=== PATIENT | female | born 1975 | race Caucasian/White ===

== ENCOUNTER 2019-04-27 11:14 | Emergency (ER) | payer OTHER, SELFPAY ==
--- NOTE | 2019-04-27 11:18 | ED.GENADUL_ITS ---
Discharge Plan Disposition Patient Disposition: HOME Condition: Fair Discharge Details Chief Complaint: Nk/Back Pain Clinical Impression: Back muscle spasm Primary Care Provider: [facility] ED Provider: Antoinette Payton Home Meds and New Rx's Prescriptions: New diazepam [Valium] 5 mg tablet 5 mg PO TID PRN (Reason: muscle spasm) Qty: 7 RF: 0 cyclobenzaprine 10 mg tablet 10 mg PO TID PRN (Reason: muscle spasm) Qty: 10 RF: 0 Continued citalopram 10 mg Tablet 10 mg PO DAILY RF: 0 levothyroxine 50 mcg Tablet 50 mcg PO DAILY RF: 0 diazepam [Valium] 5 mg Tablet 5 mg PO BID PRNRF: 0 Multi For Her 18 mg iron-600 mcg-40 mcg Capsule 1 tab-cap PO DAILY RF: 0 Discharge Instructions Instructions: Muscle Spasm (ED) Additional Instructions: Encourage hydration. Encouraged gentle stretching and frequent range of motion. He may continue with topical options such as Salonpas or Lidoderm patches. Please continue with Tylenol, you may take max dosing of 1000 mg every 6 hours, ibuprofen 600 mg every 6 hours. If this is unsuccessful at relieving her discomfort and/or muscle spasm persists. You may alternate between the Valium and Flexeril. Please take these medications only as prescribed. Do not take these medications at this time time. Please follow-up with your primary care next week for reevaluation. If you develop fever/chills, abdominal pain, nausea/vomiting, change in your bowel or bladder habits, rash or other new/worsening symptoms, please seek care urgently once again. Please continue with physical therapy exercises previously advised. May try Therelyssa Peñae as discussed Discharge Data Discharge Date/Time-TO BE ENTERED AT DEPARTURE: 04/27/19 16:05 Medical Decision Making Patient is a pleasant 43-year-old female, accompanied by her , with chief complaint of right-sided back pain. She reports that she has had similar episodes multiple times historically. Reports that she typically has bad spasm approximately once per year. Patient typically resides in [place]. She does have a PRN order for 5 mg Valium tablets as written by her primary care. She does have a bottle here with her today. Reports she took 2.5 mg 4 hours prior to arrival with no improvement in her symptoms. Denies any recent trauma. States that she does have a heavy 2-year-old son that can exacerbate her back pain when she lifts and he begins to wiggle. No falls. States that the pain was noted yesterday morning reports she woke with this discomfort. Since that time, she is been having severe pain along the right side of her back, this is the area where she typically has spasm when this does occur. She states this does go towards the lateral aspect of the right hip but denies any pain radiating into the right lower extremity. Is ambulating, leaning to the left, assisted by her . On exam, patient appears uncomfortable. She is ambulating with an antalgic gait leaning as noted above. Vital signs within normal limits. She appears nontoxic. She has a large area of notably tense and spasmodic muscles on the right side of her back. She is no tenderness midline or paraspinal palpation. No erythema, warmth, drainage. No rash. She has very limited range of motion. No saddle paresthesias. Reflexes and strength are equal bilaterally in the lower extremity. No evidence of cauda equina. Patient was given Tylenol, ibuprofen, Lidoderm patch, Valium. She appears slightly more comfortable but only minimally so. She has persistent severe pain with any type of movement. She still has notable spasm with palpation. Plan to augment this with oxycodone. Patient is feeling improved after the addition of the oxycodone. She is able to tolerate a more upright position in regard to laterality but is still slightly kyphotic when ambulating. States that pain is greatly improved. Patient ambulated about the department. Pain is not yet to the point that she is able to manage this at home. She is requesting more for her discomfort, in particular further management of her muscle spasm. I did discuss the case with Dr. Nugent as I am concerned to continue adding medications that may have further analgesic effect. The patient is not sedated anyway. She does not appear fatigued. She is reading her book otherwise very interactive. Patient continues to have notable palpable spasm of the right side of her back. We discussed the block but at this point again, the patient prefers to focus more on muscle relaxer strategies. She had initially told me that Flexeril has not worked well for her. However, she is now reporting that it is been quite sometime since she tried this and will give her 10 mg p.o. Flexeril to see if this helps improve her symptoms. Reevaluate the patient, she continues to feel slightly improved with pain persist. She reports that she feels that she can move more but the pain is still very much factor. Dr. Nugent again talked with the patient and discussed risk/benefits as well as expected procedural steps of block with lidocaine bupivacaine. Patient voiced understanding and wished to proceed. Chely galloway see his note. After this, patient is more mobile. She has been trying to gently stretch and move. She is more ambulatory. Feels that she is ready for discharge at this time. She has been working with physical therapy for quite some time regarding her recurrent back spasm will continue with physical therapy recommendations. We will continue her on Flexeril and Valium but I did advise that she should not take these medications together. She was given strict usage instructions and we discussed the risks associated with medications in depth. She has not been fatigued at all since being here, has tolerated this combination well and was advised to separate them more so one at home. She will contact her primary care tomorrow to schedule follow-up appointment. She is given strict return precautions. All of her questions and concerns were addressed and she is in agreement this plan. HPI General Mode of arrival: ambulatory . Date/Time Provider Initiated Documentation: 04/27/19 11:18 . Limitations to Documentation: no limitations . Information obtained by: patient, family () and RN notes reviewed . History of Present Illness 43 year old F presents to the emergency department with the chief complaint of right sided back pain, muscle spasm, described as moderate and similar to prior episodes, with intensity rated at 7. Quality is described as stabbing, and is localized to the back. Patient reports no radiation. Patient started experiencing this day(s) (1) and it has been constant. Immobilization improves symptom(s), Movement worsens symptoms . Patient notes no other symptoms.; denies chest pain, cough, diaphoresis, fever/chills, loss of appetite, nausea/vomiting, rash and shortness of breath. Patient did receive the following treatments prior to arrival, other (2.5 mg Valium) Related Data Home Medications Medication Instructions Recorded Confirmed Multi For Her 1 tab-cap PO DAILY 04/27/19 04/27/19 citalopram 10 mg PO DAILY 04/27/19 04/27/19 cyclobenzaprine 10 mg PO TID PRN #10 tab 04/27/19 diazepam [Valium] 5 mg PO BID PRN 04/27/19 04/27/19 diazepam [Valium] 5 mg PO TID PRN #7 tab 04/27/19 levothyroxine 50 mcg PO DAILY 04/27/19 04/27/19 Previous Rx's Medication Instructions Recorded cyclobenzaprine 10 mg PO TID PRN #10 tab 04/27/19 diazepam [Valium] 5 mg PO TID PRN #7 tab 04/27/19 Allergies Allergy/AdvReac Type Severity Reaction Status Date / Time leuprolide [From Lupron] AdvReac Unverified 04/27/19 11:28 Review of Systems Constitutional Constitutional: Reports as per HPI, Denies chills, Denies fatigue, Denies fever(s), Denies frequent falls and Denies headache(s) Eyes Eyes: Denies change in vision ENT Ears, Nose, Mouth, and Throat: Denies headache(s) Cardiovascular Cardiovascular: Denies chest pain, Denies dyspnea and Denies dyspnea on exertion Respiratory Respiratory: Denies cough, Denies dyspnea and Denies dyspnea on exertion Gastrointestinal Gastrointestinal: Denies abdominal pain, Denies change in bowel habits and Denies fecal incontinence Genitourinary Genitourinary: Reports as per HPI, Denies urinary incontinence and Denies urinary hesitancy Musculoskeletal Musculoskeletal: Reports as per HPI, Reports back pain, Denies muscle weakness, Denies numbness, Denies radiating pain into limb, Reports stiffness and Denies tingling Integumentary/Breasts Skin/Breast: Reports as per HPI and Denies rash Neurologic Neurologic: Reports as per HPI, Denies frequent falls, Denies headache(s), Denies focal weakness, Denies numbness, Denies radicular pain, Denies sensory deficit, Denies tingling and Denies paresthesias Endocrine Endocrine: Denies fatigue [facility] Social History Smoking/Tobacco Use Status: Never Alcohol Intake: current Alcohol Intake frequency: holidays/special occasions only Alcohol type: wine Drug use: Never Substance use type: does not use Do you feel safe at home: Yes Do you feel safe in your relationship?: Yes Exam Const General: cooperative, healthy appearing, uncomfortable (appears very uncomfortable, walking assisted by ), no acute distress, well developed and well groomed Nutritional Appearance: average body habitus and well nourished Orientation: alert and awake Eyes General: appearance normal, both eyes and all related structures Neck Neck: normal visual inspection, full ROM, no lymphadenopathy and no meningeal signs Resp Effort & Inspection: normal respiratory effort and able to speak in complete sentences Auscultation: clear to auscultation bilaterally, no rales, no rhonchi and no wheezes Cardio Rate: regular rate Rhythm: regular rhythm Heart Sounds: S1 normal and S2 normal Back/Spine/Pelvis Cervical Spine: normal cervical lordosis Thoracic/Lumbar Spine: No thoracic and lumbar spine normal to inspection (leaning to the left, significant palpable spasm along right side), No pa raspinal tenderness, thoraco-lumbar ROM limited, No thoracic spinal tenderness and No lumbar spinal tenderness Pelvis: no pain with anterior-posterior compression and no pain with lateral compression Sacroiliac joints: bilaterally nontender Back/spine/pelvis image: 1. area of palpable spasm with pain Skin General skin exam: no rashes or lesions noted Neuro General: alert and awake Cognition: normal cognition Speech: speech normal Gait: normal gait Motor: muscle tone normal throughout, strength 5/5 throughout, no movement abnormalities noted and no fasciculations Sensory Exam: no sensory deficits noted (no saddle paresthesias) DTR's: Rt Patellar: 2+, Lt Patellar: 2+, Rt Ankle: 2+ and Lt Ankle: 2+ Extrem General: normal to inspection, full ROM, normal capillary refill, no joint enlargement, no pedal edema, no calf tenderness and normal gait Psych Appearance: grossly normal and well kempt Mental Status: mental status grossly normal Speech and Movement: speech and movement normal
[2019-04-27 11:24] VITALS: BP 107/70; PULSE 60; RESP 14; TEMP 36.4; O2SAT 100
[2019-04-27] MEDS: Lidocaine 5% Patch 1 PATCH (11:58)
[2019-04-27] MEDS: diazePAM 5 MG TAB (11:58)
[2019-04-27] MEDS: Ibuprofen 800 MG TAB (11:59)
[2019-04-27] MEDS: Acetaminophen 500 MG TAB (11:59)
[2019-04-27] MEDS: oxyCODONE 5 MG TAB PO (12:50)
[2019-04-27] MEDS: Cyclobenzaprine 10 MG TAB PO (14:22)
[2019-04-27] MEDS: Bupivacaine 0.5% Pres-Free 30 ML VIAL (15:10)
[2019-04-27] MEDS: Lidocaine 2% Multi-Dose 50 ML VIAL (15:11)
== END 2019-04-27 16:05 | disposition home or self-care (01) ==
PROVIDERS: Emergency Provider Physician Assistant
DX: M62.830 Muscle spasm of back (principal)
CPT/HCPCS: 99283

== ENCOUNTER 2020-02-28 12:52 | Emergency (ER) | payer OTHER, SELFPAY ==
[2020-02-28 13:11] VITALS: BP 140/95; PULSE 64; RESP 16; TEMP 36.6; O2SAT 99
--- NOTE | 2020-02-28 13:59 | W.ED.GENAD ---
Discharge Plan Disposition Patient Disposition: HOME Condition: Stable Discharge Details Chief Complaint: Laceration Clinical Impression: Laceration of finger of left hand Primary Care Provider: [facility] ED Provider: Meenu Stringer Home Meds and New Rx's Prescriptions: New cephalexin 500 mg tablet 500 mg PO BID 5 Days Qty: 10 RF: 0 No Action levothyroxine 50 mcg Tablet 50 mcg PO DAILY RF: 0 Multi For Her 18 mg iron-600 mcg-40 mcg Capsule 1 tab-cap PO DAILY RF: 0 Discharge Instructions Instructions: Finger Laceration (ED), Skin Adhesive Care (ED) Additional Instructions: Use splint as directed for the next 3 to 4 days. Tissue adhesive will start to slough off within 4 to 6 days. No soaking, return for any signs of infection including redness, drainage, swelling, pain fever or any concerns. Follow up with primary care provider in 3-5 days. Return to ED sooner if any worsening or concerns. Increase oral fluids. Please take Tylenol or Ibuprofen with food every 4-6 hours as needed for pain and swelling. Discharge Data Discharge Date/Time-TO BE ENTERED AT DEPARTURE: 02/28/20 14:54 Medical Decision Making Laceration repaired with skin tissue adhesive as noted in procedure note above. Wound was cleaned with chlorhexidine surgical scrub, nonadherent dressing applied and finger splint applied. Discussed home care and strict return instructions, verbalized understanding. Patient placed on 5 days of cephalexin 500 mg twice a day due to laceration over the joint space to treat empirically for infection. Tdap booster was given in department. Patient verbalized understanding and discussed strict return instructions and to watch for signs of infection. HPI General Date/Time Provider Initiated Documentation: 02/28/20 13:13. Limitations to Documentation: no limitations. Information obtained by: patient. HPI Narrative: 24-year-old female presents with a left index finger laceration which occurred approximately 2 hours prior to arrival. At noon she was cutting a bagel and the knife slipped. She has full range of motion noted to her digit unknown tetanus status at this time. Related Data Home Medications Medication Instructions Recorded Confirmed Multi For Her 1 tab-cap PO DAILY 04/27/19 02/28/20 levothyroxine 50 mcg PO DAILY 04/27/19 02/28/20 cephalexin 500 mg PO BID 5 Days #10 tab 08/12/20 Previous Rx's Medication Instructions Recorded cephalexin 500 mg PO BID 5 Days #10 tab 02/28/20 Allergies Allergy/AdvReac Type Severity Reaction Status Date / Time leuprolide [From Lupron] AdvReac Unverified 02/28/20 13:14 General Stated Complaint: Laceration DAMIEN: 4 Review of Systems All systems reviewed & are unremarkable except as noted in HPI and below Integumentary/Breasts Skin/Breast: Reports wounds (Laceration to left index finger medial aspect) [facility] Social History Smoking/Tobacco Use Status: Never Alcohol Intake: current Alcohol Intake frequency: holidays/special occasions only Alcohol type: wine Drug use: Never Substance use type: does not use Do you feel safe at home: Yes Do you feel safe in your relationship?: Yes Exam Narrative Exam Narrative: Constitutional: Alert and oriented x3. Appears stated age. Normal body habitus. Head: Normocephalic, no trauma. spection, no mastoid TTP, swelling, or erythema, Nasal turbinates WNL, no nasal discharge. Normal dentition, Posterior pharynx WNL, no exudate. Chest: RRR, Normal S1, S2, distal pulses intact. Resp: Lungs clear to auscultation bilaterally, no wheezes, rales, or rhonchi. Musculoskeletal: Normal gait, 5/5 strength to all four extremities. Skin: See exam below capillary refill less than 2 sec. Neurologic: Cranial nerves II-XII intact. Alert and oriented x 3. DTR's intact. Hematologic/Lymphatic: No ecchymosis, no lymphadenopathy. Skin Trauma: laceration (Full range of motion noted to digit) left dorsal 2nd finger irregular, flap, superficial, motor nerve function intact and sensation intact; not contaminated Course Vital Signs Vital signs: Vital Signs Temperature 36.6 C 02/28/20 13:11 Pulse 64 02/28/20 13:11 Respiratory Rate 16 02/28/20 13:11 Blood Pressure 140/95 H 02/28/20 13:11 Pulse Oximetry 99 02/28/20 13:11 Temperature 36.6 C 02/28/20 13:11 Temperature Source Temporal Artery Scan 02/28/20 13:11 Pulse 64 02/28/20 13:11 Respiratory Rate 16 02/28/20 13:11 Respiratory Effort Non-Labored 02/28/20 13:22 Blood Pressure 140/95 H 02/28/20 13:11 Pulse Oximetry 99 02/28/20 13:11 Oxygen Delivery Method Room Air 02/28/20 13:11 Oxygen Flow Rate 0 02/28/20 13:11 Pain Level 2 02/28/20 13:24 Procedures Laceration Laceration 1: Site: hand Side (If applicable): left Size (cm): 1 Description: flap Depth: simple, single layer Pre-repair: irrigated extensively Skin layer closed with: other (Tissue adhesive nonadherent bandage and finger splint)
== END 2020-02-28 14:54 | disposition home or self-care (01) ==
PROVIDERS: Emergency Provider Registered Nurse Emergency
DX: S61.211A Laceration without foreign body of left index finger without damage to nail, initial encounter (principal); W26.0XXA Contact with knife, initial encounter; Y93.G1 Activity, food preparation and clean up
CPT/HCPCS: 12001; 90471

== ENCOUNTER 2020-03-05 16:43 | Emergency (ER) | payer OTHER, SELFPAY ==
[2020-03-05 16:48] VITALS: PULSE 75; RESP 16; TEMP 36.3; O2SAT 98
--- NOTE | 2020-03-05 16:52 | W.ED.GENAD ---
Discharge Plan Disposition Patient Disposition: HOME Condition: Good Discharge Details Chief Complaint: Recheck Clinical Impression: Laceration of finger of left hand Primary Care Provider: [facility] Provider: Antoinette Payton Home Meds and New Rx's Prescriptions: New cephalexin [Keflex] 500 mg capsule 500 mg PO QID 5 Days Qty: 20 RF: 0 Continued levothyroxine 50 mcg Tablet 50 mcg PO DAILY RF: 0 Multi For Her 18 mg iron-600 mcg-40 mcg Capsule 1 tab-cap PO DAILY RF: 0 Discharge Instructions Instructions: Cellulitis (ED), Finger Laceration (ED) Additional Instructions: Please continue to keep wound clean, dry, covered. You may take it off to wash your hands, then pat dry and apply a Band-Aid. Please continue with splint for the next 4 to 5 days. Once the wound is well-healed, you may begin flexing the finger more to improve your range of motion. I suspect some of your limited mobility is associated with the swelling and being in a splint for a week now. I am concerned that you may be developing infection with your increased discomfort as well as discharge from the wound. However, I do not see any evidence to suggest an abscess. Please take the antibiotics as prescribed. If you develop increased swelling, fevers, redness or other new/worsening symptom please to care urgently once again. Otherwise, I have asked her rn wound care to help you establish a local primary care provider. Discharge Data Discharge Date/Time-TO BE ENTERED AT DEPARTURE: 03/05/20 17:21 Medical Decision Making Patient is a pleasant 44-year-old [id number] female presents today with chief complaint of increased discomfort to the laceration she sustained on the left index finger. Patient was seen here 8 days ago at which time laceration had been cleansed and closed with Dermabond. A full mouth splint had been applied. She states that she had been healing well initially. However, she was having difficulty with removing the bandage that was over the adhesive as this was glued down to it. States that yesterday when the bandage finally did come off the entirety of the adhesive came off as well. She reports that today she has noted some discharge from the wound although not able to note any at the time of exam. States that the pain has also increased particularly over the PIP joint. She states that her range of motion has been limited over the past few days and seems to be worsening. Particularly flexion. She continues to use the splint. On exam, patient appears nontoxic. She does have some soft area of swelling over the PIP joint. This was explored with an ultrasound I do not appreciate any fluid collection suggesting abscess. She does not have any erythema. She has intact flexion and extension. Wound does appear to be healing well. Patient I discussed treatment options. At this time, she is having increased discomfort and drainage, I do feel that continued antibiotics would be appropriate. She was initially treated with Keflex, symptoms began to worsen after this was stopped. We will continue the Keflex for a long period of time. Encourage that she continue with a foam and metal splint. Patient is new to the area and I have asked her care management to help arrange for follow-up with primary care physician for wound check. She was given strict return precautions. We did discuss wound care to help promote healing. All of her questions and concerns were addressed and she is in agreement this plan. HPI General Mode of arrival: ambulatory. Date/Time Provider Initiated Documentation: 03/05/20 16:45. Limitations to Documentation: no limitations. Information obtained by: patient and RN notes reviewed. History of Present Illness 44 year old F presents to the emergency department with the chief complaint of laceration left index finger, described as mild, with intensity rated at 3. Quality is described as aching, and is localized to the left and upper extremity. Patient reports no radiation. Patient started experiencing this day(s) and it has been constant. Immobilization improves symptom(s), Movement worsens symptoms . Patient notes no other symptoms.; denies fever/chills. Patient did receive the following treatments prior to arrival, none Related Data Home Medications Medication Instructions Recorded Confirmed Multi For Her 1 tab-cap PO DAILY 04/27/19 03/05/20 levothyroxine 50 mcg PO DAILY 04/27/19 03/05/20 cephalexin [Keflex] 500 mg PO QID 5 Days #20 cap 03/05/20 Previous Rx's Medication Instructions Recorded cephalexin [Keflex] 500 mg PO QID 5 Days #20 cap 03/05/20 Allergies Allergy/AdvReac Type Severity Reaction Status Date / Time leuprolide [From Lupron] AdvReac Unverified 03/05/20 16:53 General Stated Complaint: Recheck DAMIEN: 4 Review of Systems Constitutional Constitutional: Reports as per HPI, Denies chills and Denies fever(s) Musculoskeletal Musculoskeletal: Reports as per HPI Integumentary/Breasts Skin/Breast: Reports as per HPI Neurologic Neurologic: Reports as per HPI, Denies sensory deficit and Denies paresthesias [facility] Social History Smoking/Tobacco Use Status: Never Alcohol Intake: current Alcohol Intake frequency: holidays/special occasions only Alcohol type: wine Drug use: Never Substance use type: does not use Do you feel safe at home: Yes Do you feel safe in your relationship?: Yes Exam Const General: cooperative, healthy appearing, comfortable, no acute distress and well developed Nutritional Appearance: average body habitus and well nourished Orientation: alert and awake Resp Effort & Inspection: normal respiratory effort, able to speak in complete sentences and no respiratory distress Cardio Rate: regular rate Rhythm: regular rhythm Skin Trauma: laceration (as below) Neuro General: patient alert and patient awake Cognition: normal cognition Speech: speech normal Gait: normal gait Sensory Exam: no sensory deficits noted Extrem Hand/finger images: 1. Curvilinear laceration with evidence of good healing. Dermabond has come off. The area of the PIP joint is swollen soft. No erythema. Limited range of motion, is only able to flex approximately 90 degrees. Passive range of motion past this was very uncomfortable for the patient. However, she is able to flex and extend against resistance without any evidence of tendon with the structure. She has intact sensation distally, good capillary refill. No ecchymosis. No drainage. Psych Appearance: grossly normal and well kempt Mental Status: mental status grossly normal Speech and Movement: speech and movement normal Course Vital Signs Vital signs: Vital Signs Temperature 36.3 C L 03/05/20 16:48 Pulse 75 03/05/20 16:48 Respiratory Rate 16 03/05/20 16:48 Pulse Oximetry 98 03/05/20 16:48 Temperature 36.3 C L 03/05/20 16:48 Temperature Source Tympanic 03/05/20 16:48 Pulse 75 03/05/20 16:48 Respiratory Rate 16 03/05/20 16:48 Blood Pressure Position Sitting 03/05/20 16:48 Pulse Oximetry 98 08/18/20 16:48 Oxygen Delivery Method Room Air 03/05/20 16:48 Oxygen Flow Rate 0 03/05/20 16:48 Pain Level 3 03/05/20 16:48
--- NOTE | 2020-03-05 17:15 | NUR.NOTE ---
Nursing Note: Referral for needing PCP given to Care Management. Crystal Merino
== END 2020-03-05 17:21 | disposition home or self-care (01) ==
LOC: ER 17:24
PROVIDERS: Emergency Provider Physician Assistant
DX: S61.211A Laceration without foreign body of left index finger without damage to nail, initial encounter (principal); W26.0XXA Contact with knife, initial encounter; M79.645 Pain in left finger(s)
CPT/HCPCS: 99283

== ENCOUNTER 2020-09-06 20:52 | Emergency (ER) | payer OTHER, SELFPAY ==
--- NOTE | 2020-09-06 20:55 | ED.GENADUL_ITS ---
Discharge Plan Disposition Patient Disposition: HOME Condition: Good Discharge Details Clinical Impression: Pain of left calf Primary Care Provider: Tiny,Local ED Provider: Roe Tim Meds and New Rx's Prescriptions: Continued levothyroxine 50 mcg Tablet 50 mcg PO DAILY RF: 0 Multi For Her 18 mg iron-600 mcg-40 mcg Capsule 1 tab-cap PO DAILY RF: 0 trazodone 50 mg Tablet 25 mg PO HS RF: 0 Discharge Instructions Additional Instructions: Given the localized nature and lack of other symptoms or findings I do not believe this is related to blood clot (DVT). Suspect more likely muscular in nature. Please try stretching, heat, ibuprofen over the weekend. Return to ED if you develop increasing leg pain or swelling, shortness of breath, fever, chest pain. Medical Decision Making This is not consistent with DVT. It is not even superficial thrombophlebitis. More likely muscular pain related to injury that she is unaware of. There is no hematoma, fluctuance, mass. There is no rash, redness, bruising. Pain is very localized to the medial calf. There is no posterior calf tenderness, edema, evidence of DVT otherwise. At this point I do not think D-dimer is even necessary. Recommend stretching, warm compresses, nonsteroidals over the weekend. Return to ED if worsening pain, swelling, chest pain, shortness of breath, other concerns. HPI General Mode of arrival: ambulatory . Date/Time Provider Initiated Documentation: 09/06/20 20:53 . Limitations to Documentation: no limitations . Information obtained by: patient and RN notes reviewed . HPI Narrative: Patient presents to ED with left calf pain. Pain started 1 to 2 weeks ago. She does not recall any specific injury. It is fairly localized to a quarter size area in the medial calf. She denies any redness, fever, chills. She denies any chest pain, shortness of breath. She has no prior history of blood clot. She has no leg swelling, discoloration, radiating pain. She did speak to her PCP was not local. She suggested she come to the ED to be evaluated for potential of DVT. Related Data Home Medications Medication Instructions Recorded Confirmed Multi For Her 1 tab-cap PO DAILY 04/27/19 03/05/20 levothyroxine 50 mcg PO DAILY 04/27/19 09/06/20 trazodone 25 mg PO HS 09/06/20 09/06/20 Allergies Allergy/AdvReac Type Severity Reaction Status Date / Time leuprolide [From Lupron] AdvReac Unverified 09/06/20 21:11 General DAMIEN: 4 Review of Systems Narrative: As documented in HPI otherwise negative as below. Const: no fever, chills, weakness Resp: no cough, SOB, pleuritic pain CV: no CP, diaphoresis, edema, syncope GI: no abdominal pain, nausea, vomiting, diarrhea Neuro: no headache, numbness, focal weakness, confusion PFSH Medical History (Updated 09/06/20 @ 21:15 by Roe Tim MD) Hemochromatosis Hypothyroid Social History Smoking/Tobacco Use Status: Never Smoking risk assessment performed?: Yes Alcohol Intake: current Alcohol Intake frequency: a few times a week Alcohol type: wine Drug use: Never Substance use type: does not use Do you feel safe at home: Yes Do you feel safe in your relationship?: Yes Exam Narrative Exam Narrative: Const: Thin, tall female in NAD. HEENT: NC/AT. Normal facial exam. Eyes: Normal conjunctiva and sclera. Neck: Supple. Trachea midline. Lungs: Normal respiratory effort. Neuro: A+O x 3. Normal speech, mentation, gait. Cranial nerves II - XII priya sly intact. No gross motor or sensory deficit. Ext: No C/C/E. No erythema, swelling, cords. Local tenderness noted mid- medial calf on left. No mass or fluctuance appreciated. No pain with flexion- extension at the ankle. Neurovascularly intact distally. Calf measures 34 cm bilaterally. Skin: Warm and dry without rash or erythema.
[2020-09-06 21:04] VITALS: BP 136/82; PULSE 76; RESP 16; TEMP 36.6; O2SAT 99
[2020-09-06 21:14] VITALS: RESP 16
== END 2020-09-06 21:20 | disposition home or self-care (01) ==
PROVIDERS: Emergency Provider Emergency Medicine
DX: M79.662 Pain in left lower leg (principal)
CPT/HCPCS: 99282

== ENCOUNTER 2020-09-20 10:16 | Day surgery (SDC) | payer OTHER, SELFPAY ==
[2020-09-20] VITALS (8 sets, daily range): BP systolic 107–122; BP diastolic 65–79; PULSE 60–85; RESP 16–20; TEMP 36.4–37.2; O2SAT 97–100
--- NOTE | 2020-09-20 10:17 | ED.GENADUL_ITS ---
Discharge Plan Disposition Patient Disposition: [facility] Condition: Stable Discharge Details Chief Complaint: Orthopedic Clinical Impression: Closed fracture of distal ends of left radius and ulna Primary Care Provider: Tiny,Local ED Provider: Abdelrahman Zarate Home Meds and New Rx's Prescriptions: No Action levothyroxine 50 mcg Tablet 50 mcg PO DAILY RF: 0 Multi For Her 18 mg iron-600 mcg-40 mcg Capsule 1 tab-cap PO DAILY RF: 0 trazodone 50 mg Tablet 25 mg PO HS RF: 0 Discharge Orders Discharge Orders: Discharge Order (Routine); Ordered 09/20/20 Ordered By: Heath Montes De Oca Medical Decision Making 45-year-old female, [id number], presents with left wrist pain status post fall just prior to arrival. She does have rings on her ring finger, is a were removed with the ring cutter. IV access obtained, given 1 mg IV Dilaudid. Will obtain x-ray of the left wrist and elbow. Patient required a second dose of IV Dilaudid. X-ray of left wrist read by radiology as a comminuted intra-articular fracture of the distal left radius. The fracture is impacted with dorsal angulation and displacement. There is also a comminuted fracture of the left distal ulna with posterior displacement and angulation of the distal fracture. Left elbow x-ray read by radiology as negative Patient was temporarily splinted with a volar splint. Patient given additional 4 mg IV morphine. Patient remains neuro, vascular, tendon intact. Case discussed with orthopedics, Dr. Montes De Oca. Plan is to bring the patient to day surgery for reduction. This plan was discussed with patient, she has no additional questions or concerns. Medical Records Medical records reviewed: Yes I reviewed the patient's medical records. HPI General Mode of arrival: ambulatory . Date/Time Provider Initiated Documentation: 09/20/20 10:17 . Limitations to Documentation: no limitations . Information obtained by: patient . History of Present Illness described as severe, with intensity rated at 9. Quality is described as aching, and is localized to the left and upper extremity. Patient reports no radiation. Patient started experiencing this minute(s) (30) and it has been constant. No relieving factors improve symptom(s), Movement worsens symptoms . Patient notes no other symptoms.. Patient did receive the following treatments prior to arrival, none HPI Narrative: This is a 45-year-old female, [id number], past medical history of hypothyroidism, presenting for a left wrist injury. She states just prior to arrival she was walking, slipped on ice, and put her left arm out in an attempt to catch herself. She reports pain in her left wrist that is 9 out of 10 and pain in her left elbow that is 4 or 5 out of 10. She denies any other injuries. Denies numbness, tingling, weakness. Has not taken any medications for her symptoms. Related Data Home Medications Medication Instructions Recorded Confirmed Multi For Her 1 tab-cap PO DAILY 04/27/19 09/20/20 levothyroxine 50 mcg PO DAILY 04/27/19 09/20/20 trazodone 25 mg PO HS 09/06/20 09/20/20 Allergies Allergy/AdvReac Type Severity Reaction Status Date / Time leuprolide [From Lupron] AdvReac Unverified 09/20/20 10:24 General DAMIEN: 3 Review of Systems Constitutional Constitutional: Denies headache(s) and Denies weakness ENT Ears, Nose, Mouth, and Throat: Denies headache(s) and Denies neck pain Cardiovascular Cardiovascular: Denies chest pain Gastrointestinal Gastrointestinal: Denies vomiting Musculoskeletal Musculoskeletal: Reports deformity, Reports arthralgias, Denies neck pain, Denies numbness and Denies tingling Integumentary/Breasts Skin/Breast: Denies rash Neurologic Neurologic: Denies headache(s), Denies numbness, Denies tingling and Denies weakness PFSH Medical History Hemochromatosis Hypothyroid Social History Smoking/Tobacco Use Status: Never Smoking risk assessment performed?: Yes Alcohol Intake: current Alcohol Intake frequency: a few times a week Alcohol type: wine Drug use: Never Substance use type: does not use Do you feel safe at home: Yes Do you feel safe in your relationship?: Yes Exam Const General: cooperative, healthy appearing and acute distress Orientation: alert, awake and oriented x3 HENMT Head: normal to inspection, normocephalic and atraumatic Eyes General: appearance normal, both eyes and all related structures Conjunctivae: conjunctivae normal Sclera: sclerae normal Neck Neck: normal visual inspection, full ROM, trachea midline and supple Resp Effort & Inspection: normal respiratory effort and able to speak in complete sentences Auscultation: clear to auscultation bilaterally Cardio Rate: regular rate Rhythm: regular rhythm Skin General skin exam: no rashes or lesions noted Neuro General: patient alert, patient awake, moves all extremities and no focal motor deficits Cognition: normal cognition Speech: speech normal Gait: normal gait Sensory Exam: no sensory deficits noted Extrem Right upper extremity: normal to inspection, full ROM and normal capillary refill Left upper extremity: normal capillary refill, shoulder/upper arm Details: inspection abnormal, axillary nerve sensory function normal and normal ROM; no tenderness and no swelling, elbow/forearm Details: normal to inspection, tenderness (Diffuse mild posterior) and normal ROM; no swelling and wrist Details: abnormal to inspection, tenderness, swelling, abnormal ROM, crepitus, deformity, normal vascular exam and radial pulse present Other: Left wrist with diffuse discomfort, swelling, obvious deformity. Limited range of motion secondary to discomfort. Skin is intact. Normal radial pulse. Normal capillary refill. Psych Appearance: grossly normal Mental Status: mental status grossly normal
--- OUTSIDE RECORDS SUMMARY | 2020-09-20 10:27 | XMS_ITS ---
:1975 Author Care Team Providers Name Role Phone DR. MARINE YUEN Referring Provider [phone] Allergies None recorded. Medications None recorded. Problems None recorded. Procedures None recorded. Results Lab Results None recorded. Past Encounters None recorded. Social History None recorded. Vaccine List None recorded. Plan of Care Reminders Provider Appointments None ? ? recorded. Lab None ? ? recorded. Referral None ? ? recorded. Procedures None ? ? recorded. Surgeries None ? ? recorded. Imaging None ? ? recorded. Vitals None recorded.
[2020-09-20] MEDS: HYDROmorphone 2 MG/ML VIAL 1 MG IVP ×2 (10:32→10:51)
[2020-09-20] MEDS: Normal Saline Flush 10 ML SYR IVP ×3 (10:33→14:37)
--- NOTE | 2020-09-20 10:54 | NUR.NOTE ---
Nursing Note: Attempted to remove patients wedding band unsuccessfully with jil. Received verbal consent to cut rings. One cut made in each band, when bands were opened to get over swollen knuckle the wedding ring broke in two pieces. Unable to get second band off without possible bending/breaking so second cut was verbally consented and removed by cutting in half in two pieces. All pieces were accounted for, no stones were dislodged or lost. Placed all pieces in a urine specimen cup with a patient label and zipped up in patients winter coat pocket.
--- NOTE | 2020-09-20 11:27 | DI.RAD_ITS ---
EXAM: XR WRIST LT COMPLETE CLINICAL HISTORY: fall/deformity. TECHNIQUE: 2D digital imaging was performed. COMPARISON: No exams were available for comparison FINDINGS: BONES: There is a comminuted intra-articular fracture of the distal left radius. The fracture is imp acted with dorsal angulation and displacement. There is also a comminuted fracture of the distal lef t ulna with posterior displacement and angulation of the distal fracture. No bony destructive lesion is seen. JOINTS: The carpal bones are normally aligned. SOFT TISSUE: Soft tissue swelling is present. IMPRESSION: Distal left radial and ulnar fractures as described above. DATA REPOSITORY: RADIATION DOSE DELIVERED:
--- NOTE | 2020-09-20 11:27 | DI.RAD_ITS ---
EXAM: XR ELBOW LT COMPLETE CLINICAL HISTORY: fall/pain. TECHNIQUE: 2D digital imaging was performed. COMPARISON: No exams were available for comparison FINDINGS: BONES: No acute fracture is present. No bony destructive lesion is seen. JOINTS: The elbow is normally aligned. No joint effusion is seen. SOFT TISSUE: Normal. IMPRESSION: Unremarkable radiographs of the left elbow. DATA REPOSITORY: RADIATION DOSE DELIVERED:
--- NOTE | 2020-09-20 12:04 | W.ORTHOCONSU ---
Date of service: 09/20/20 Time of Service: 12:04 History of Present Illness History of Present Illness Chief Complaint: Left wrist fracture Narrative: Chief Complaint: Left wrist fracture HPI: Mechanical slip and fall today. Sudden onset, severe left wrist deformity and pain. No other injuries except soreness radiates proximally to the elbow. No prior fractures or wrist injury. prior injury: No attempted treatments: Field splint immobilization numbness/tingling: Denies but dorsal index long and ring fingers have possible altered sensation prior imaging: Elbow and wrist x-rays PMH: Hypothyroid, insomnia diabetes: Denies allergies: Lupron FH: non-contributory SH: hand dominance: Right Moved to [facility] from last February. Still has insurance through her [facility] [employer] [employer] and home in [place]. smoke cigarettes: No Consult Reason Displaced left wrist fracture emergent reduction and management Assessment and Plan Assessment and plan (1) Closed fracture of distal ends of left radius and ulna: Status: Acute Assessment and plan: 45-year-old female with left displaced distal radius distal ulna fractures Transfer from ED to day surgery for close reduction and splinting under general esthesia in the operating room The risks, benefits, and alternatives were thoroughly discussed. Patient was counseled regarding pain management, expected postoperative course, and recovery timeline. All questions were answered. Informed consent was obtained. Agree and understand treatment plan. We will assess post reduction alignment given significant dorsal angulation and lunate facet intra-articular involvement for counseling regarding operative versus nonoperative treatment Follow-up next week with Dr. Montes De Oca at [facility] orthopedics or elsewhere in [facility] per patient preference. Please call Wednesday to confirm appointment with us or for referral elsewhere. Qualifiers: Encounter type: initial encounter Qualified Code(s): S52.502A - Unspecified fracture of the lower end of left radius, initial encounter for closed fracture; S52.602A - Unspecified fracture of lower end of left ulna, initial encounter for closed fracture Review of Systems Constitutional Constitutional: Denies chills and Denies fever(s) Eyes Eyes: Denies diplopia and Denies loss of vision Cardiovascular Cardiovascular: Denies chest pain with activity, Denies irregular heart rhythm and Denies dyspnea Respiratory Respiratory: Denies cough and Denies dyspnea Musculoskeletal Musculoskeletal: Reports as per HPI Integumentary/Breasts Skin/Breast: Denies rash and Denies wounds Neurologic Neurologic: Reports as per HPI and Denies loss of vision Allergic/Immunologic Allergic/Immunologic: Reports as per HPI [facility] Medical History Hemochromatosis Hypothyroid Social History Smoking/Tobacco Use Status: Never Smoking risk assessment performed?: Yes Alcohol Intake: current Alcohol Intake frequency: a few times a week Alcohol type: wine Drug use: Never Substance use type: does not use Do you feel safe at home: Yes Do you feel safe in your relationship?: Yes Exam Const General: cooperative and comfortable (Patient transitions from comfortable to uncomfortable while waiting) Orientation: alert, awake and not confused Limitations: mental status not altered and no language barrier HENMT Head: normocephalic and atraumatic Neck Neck: normal visual inspection and full ROM Resp Effort & Inspection: normal respiratory effort, able to speak in complete sentences, no audible wheezes and no grunting General: deferred Skin General skin exam: no rashes or lesions noted Neuro General: patient alert, patient awake and patient oriented x3 Cognition: normal cognition Speech: speech normal Extrem Other: Left upper extremity: Obvious dorsal angulation deformity of left wrist. All 4 compartments soft. Brisk cap refill grossly all digits. Very weakly able demonstrate intact motor AIN, PIN, ulnar nerves with significant fear regarding Sensation intact light touch throughout with possible dorsal index finger altered sensation. No obvious median nerve symptoms. No obvious edema, ecchymosis, deformity at the elbow. Examination limited by significant fracture deformity, patient guarding and understandably pain. Plan for reexamination post procedure/reduction. Contralateral wrist 2+ radial pulse. Regular rate and rhythm. Psych Appearance: grossly normal Mental Status: mental status grossly normal Speech and Movement: speech and movement normal Affect: normal affect Attitude: cooperative Results Last Vital Signs Temp 97.5 F L 09/20/20 10:22 Pulse 85 09/20/20 10:22 Resp 20 09/20/20 10:22 BP 118/79 09/20/20 10:22 Pulse Ox 98 09/20/20 10:22 Imaging Imaging Studies: Left elbow x-rays report images reviewed: Negative for any fracture or dislocation. Left wrist x-rays report images reviewed: Significant for likely intra-articular significantly dorsally angulated distal radius fracture involving lunate facet without significant intra-articular step-off. Distal ulnar dorsal angular fracture as well.
--- NOTE | 2020-09-20 12:30 | DI.RAD_ITS ---
EXAM: XR WRIST LT LIMITED CLINICAL HISTORY: fx left wrist TECHNIQUE: 2D and realtime digital imaging was performed. CONTRAST MATERIAL: Refer to procedure report. COMPARISON: CR XR WRIST LT COMPLETE from 09/20/2020 FINDINGS: Fluoroscopy was provided for Dr. Montes De Oca during the performance of a reduction of the distal left radi al and ulnar fractures. Please refer to the procedure report for complete details. Fluoro time: 18.6 seconds IMPRESSION: RADIATION DOSE DELIVERED:
[2020-09-20 13:27] LABS: COVID-19 PCR Negative (Negative); Influenza A PCR Negative (Negative); Influenza B PCR Negative (Negative); RSV PCR Negative (Negative)
[2020-09-20] MEDS: Lactated Ringers 1,000 ML 30 ML IV (13:40)
--- NOTE | 2020-09-20 13:53 | ROE_ITS ---
Date of service: 09/20/20 Time of Service: 14:00 Operative Note Operative Note DATE OF PROCEDURE: 09/20/20 PRE-OP DIAGNOSIS: Left displaced distal radius and ulnar fractures POST-OP DIAGNOSIS: same PROCEDURE: Left wrist closed reduction, CPT # 8[address]00 SURGEON: Heath Montes De Oca LICENSED CHEMICAL SPRAY TECHNICIAN: None None ANESTHESIA TYPE: General:No Airway Refer to Anesthesia Record ESTIMATED BLOOD LOSS: 0 TOURNIQUET TIME: 0 COMPLICATIONS: None Patient was transported to: PACU Patient's condition: stable Indications: Please see complete medical record for details. Procedure Description: In the operating room, general anesthesia was induced. The patient was positioned supine on the operating room table. All bony prominences were well-padded. Preoperative antibiotics were omitted. The correct patient, procedure, and side of the procedure were all verified prior to reduction. The field splint was removed. The extremity was examined once again. All forearm compartments were soft. There was a slight abrasion from the field splint dorsally distally with minimal skin breakdown. The radial pulse was palpable although diminished given deformity and edema about the fracture site. There were no open wounds. Using my thigh proximal to the elbow around the arm a traction, exaggeration, and dorsal to volar directed manual reduction maneuver was achieved. AP and lateral fluoroscopy confirmed excellent reduction of the significantly displaced fracture. Additional radial inclination and height was obtained with some radial deviation. Fluoroscopy confirmed appropriate reduction. Post manipulation exam showed significant improvement in appearance of the wrist with intact radial pulse and no open wounds or skin breakdown. An appropriately molded and padded sugar tong plaster splint was applied about the left elbow forearm and wrist taking care to and at the volar wrist crease and allow for full finger and thumb range of motion. An Mac compressive bandage gently wrapped about the soft roll in splint. Final AP lateral oblique fluoroscopy confirmed complete reduction of this dorsally angulated distal radius distal ulna fractures with confucianism if not slight over reduction of the volar hook and appropriate radial height, inclination, and no obvious intra-articular step- off. The patient awoke from anesthesia without complication and was transferred to the recovery room in a stable condition.
--- NOTE | 2020-09-20 14:30 | PDOC.DSDIS_ITS ---
Discharge Plan Disposition Patient Disposition: HOME Condition: Stable Discharge Details Reason For Visit: Left wrist fracture Attending Provider: Heath Montes De Oca Primary Care Provider: No,Local Home Meds and New Rx's Prescriptions: New naproxen 250 mg tablet 250 - 500 mg PO BID PRN (Reason: Moderate pain or swelling) Qty: 40 RF: 0 oxycodone 5 mg tablet 5 - 10 mg PO Q4H PRN (Reason: moderate to severe pain) Qty: 16 RF: 0 Continued levothyroxine 50 mcg Tablet 50 mcg PO DAILY RF: 0 Multi For Her 18 mg iron-600 mcg-40 mcg Capsule 1 tab-cap PO DAILY RF: 0 trazodone 50 mg Tablet 25 mg PO HS RF: 0 Discharge Instructions Additional Instructions: Surgery: Left wrist closed reduction Activity: Nonweightbearing in splint at all times. Recommend ice and elevation to minimize swelling discomfort. May use sling when out of the home. At home it is best to remove sling and rest forearm/splint on pillows. Recommend daily gentle range of motion to all fingers and thumb to prevent stiffness. Prescriptions: Naproxen 250 mg take 1-2 every 12 hours with a meal as needed for moderate pain Oxycodone 5 mg take 1-2 every 4-6 hours as needed for severe pain You may use [id number] Tylenol (acetaminophen) as needed for mild pain. These pain medications may be taken all at once or in different combinations as needed. Also, recommend Colace (docusate) as a stool softener as surgery and pain medicine cause constipation. Dressings: Leave splint and dressing in place until follow-up. Keep clean and dry at all times. Please adjust/ loosen Mac wrap as needed to accommodate for swelling. Follow-up: Next week 09/24 or 09/[address] Montes De Oca at [facility] orthopedics. Please call Wednesday to confirm appointment with us or request referral to a recommended orthopedic surgeon in [facility]. Let us know right away if you develop any redness, drainage, fevers, chest pain, or trouble breathing. Do not drink alcohol or drive for at least 24 hours after anesthesia. Please call the office during business hours with any questions or concerns. Referrals: Heath Montes De Oca MD [ [facility] STAFF PHYSICIAN] - Discharge Orders Discharge Orders: Discharge Order (Routine); Ordered 09/20/20 Ordered By: Heath Montes De Oca DS: Diagnosis Discharge Diagnosis (1) Closed fracture of distal ends of left radius and ulna: Status: Acute
[2020-09-20] MEDS: Acetaminophen 500 MG TAB 1000 MG PO (14:36)
[2020-09-20] MEDS: Ketorolac 15 MG/ML VIAL IVP (14:37)
[2020-09-20] MEDS: oxyCODONE 5 MG TAB PO ×2 (15:23→16:08)
== END 2020-09-20 18:05 | disposition home or self-care (01) ==
LOC: ER 12:21 → SUR 12:23 → ER 12:48 → SUR 13:03 → ER 13:06 → DSU 13:38
PROVIDERS: Emergency Provider Physician Assistant; Referring Provider Physician Assistant; Visit Provider Student in an Organized Health Care Education/Training Program
PROC: (CPT 25605; principal; 2020-09-20 12:30)
DX: S52.572A Other intraarticular fracture of lower end of left radius, initial encounter for closed fracture (principal); S52.692A Other fracture of lower end of left ulna, initial encounter for closed fracture; W19.XXXA Unspecified fall, initial encounter
CPT/HCPCS: 25605; 29125; 76942; 81025; 96374; 96375; 99254; 99285; 73080; 73100; 73110; 84703; 99284; J1885; J2001; J2405; J2704

== ENCOUNTER 2020-09-27 15:14 | Outpatient (REF) | payer OTHER, SELFPAY ==
[2020-09-27 13:01] LABS: Iron 153 ug/dL (50-170); Total Iron Binding Capacity 292 ug/dL (250-450); Transferrin Sat 52 % (15-50)
[2020-09-27 13:15] LABS: Ferritin 62 ng/mL (8-252); TSH (W/Ref FT4) 1.56 uIU/mL (0.36-3.74)
== END 2020-09-27 15:15 | disposition home or self-care (01) ==
LOC: NCHCN 15:14
PROVIDERS: Visit Provider Family Medicine
DX: E03.9 Hypothyroidism, unspecified (principal); E83.119 Hemochromatosis, unspecified
CPT/HCPCS: 82728; 83540; 83550; 84443